=== PATIENT | female | born 1940 | race African-American/Black ===

== ENCOUNTER 2017-12-06 17:20 | Emergency (ER) | payer MEDICARE ==
[2017-12-06 17:37] VITALS: BP 177/68
[2017-12-06] MEDS ORDERED: DEPO-MEDROL IM ONE (19:57)
[2017-12-06] MEDS ORDERED: DECADRON IM ONE (19:57)
--- NOTE | 2017-12-06 19:59 | Emergency Department Report ---
ED General Adult HPI - General Chief complaint: Extremity Injury, Lower Stated complaint: GOUT PAIN Time Seen by Provider: 12/06/17 19:57 Source: patient Mode of arrival: Ambulatory Limitations: No Limitations - History of Present Illness -: Sudden Location: lower extremity Quality: crushing, constant Improves with: none Worsens with: none Associated Symptoms: denies other symptoms - Related Data Allergies Allergy/AdvReac Type Severity Reaction Status Date / Time latex AdvReac Rash Verified 12/06/17 17:39 NSAIDS (Non-Steroidal AdvReac Bleeding Verified 12/06/17 17:39 Anti-Inflamma ED Review of Systems ROS: Stated complaint: GOUT PAIN Other details as noted in HPI Comment: All other systems reviewed and negative Musculoskeletal: other (foot pain) ED Past Medical Hx - Past Medical History Previous Medical History?: Yes Hx Hypertension: Yes Hx Arthritis: Yes Additional medical history: gout - Surgical History Past Surgical History?: No - Social History Smoking Status: Never Smoker Substance Use Type: None ED Physical Exam - General Limitations: No Limitations General appearance: alert - Head Head exam: Present: atraumatic - Eye Eye exam: Present: normal appearance, PERRL Pupils: Present: normal accommodation - ENT ENT exam: Present: normal exam - Neck Neck exam: Present: normal inspection - Respiratory Respiratory exam: Present: normal lung sounds bilaterally - Cardiovascular Cardiovascular Exam: Present: regular rate - GI/Abdominal GI/Abdominal exam: Present: soft - Rectal Rectal exam: Present: deferred - Extremities Exam Extremities exam: Present: normal inspection, full ROM, normal capillary refill. 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 She is here doing some local gums work and has had a change in her diet. This is triggered an acute attack of her gout. She brings with her her medical records from Dr. Bee in her home state who routinely gives her the dec depoMedrol injection. She is allergic to end-stage she is already on colchicine. She cannot take oral steroids because of GI upset She has not had no trauma or fall or other injury to her foot. Injection per routine for her acute gouty flare. She will follow up with Dr. Montes physician. She has colchicine in hand and has taken it as instructed. ED Medical Decision Making - Medical Decision Making see note - Differential Diagnosis gout Critical care attestation.: If time is entered above; I have spent that time in minutes in the direct care of this critically ill patient, excluding procedure time. ED Disposition Clinical Impression: Gout attack Disposition: DC-01 TO HOME OR SELFCARE Is pt being admited?: No Does the pt Need Aspirin: No Condition: Stable Instructions: Acute Gouty Arthritis (ED) Additional Instructions: follow up per your routine Referrals: MARLENE CARLSON DR [Other] - 3-5 Days Time of Disposition: 19:58
== END 2017-12-06 20:33 | disposition home or self-care (01) ==
LOC: ED 17:20
DX: M10.9 Gout, unspecified (principal); I10 Essential (primary) hypertension; M19.90 Unspecified osteoarthritis, unspecified site; Z91.040 Latex allergy status; Z88.8 Allergy status to other drugs, medicaments and biological substances
CPT/HCPCS: 96372; 99282; J1040; J1100